=== PATIENT | male | born 1960 | race Caucasian/White ===

== ENCOUNTER → 2016-10-28 | Outpatient (CLI) | payer OTHER ==
--- NOTE | 2016-10-28 09:51 | RAD ---
APPROVED REPORT Patient Location : OUT-PATIENT Indications Lower Extremity Edema : Bilateral Deep System Deep Venous Reflux present : No Findings On grayscale images of the right great saphenous vein and saphenofemoral junction there is no obvious thrombus. There is no reflux noted in the right great saphenous vein. The right lesser saphenous v ein also does not demonstrate any evidence of reflux. The left greater saphenous vein has a reflux time of 2 seconds. No obvious thrombus burden is noted. The left lesser saphenous vein does not demonstrate any evidence of reflux. Critical Notification Critical Value: No <Conclusion> 1. Positive for reflux in the left greater saphenous vein. Otherwise no evidence of reflux in the r ight greater and the bilateral lesser saphenous veins.
--- NOTE | 2016-10-28 14:16 | CARD ---
APPROVED REPORT INDICATION Dyspnea PROCEDURE The patient underwent an Exercise Stress Test using the Daniel Protocol. Blood pressure, heart rate, a nd EKG were monitored. An Echocardiogram was performed by laser/electro optics technician in four stages in quad fashion. At peak stress four se lected images were obtained and placed side by side with resting images for comparison. STRESS ECHO FINDINGS The resting Echocardiogram showed normal left ventricular contractility with an estimated Ejection Fr action of about 60 %. Normal augmentation of myocardial wall segments using a 16 segment model. Test Type: Exercise Stress Nurse/Tech: ángela whitlock Test Indications: dyspnea Cardiac History and Allergies: none stated Medications: see EHR Medical History: none stated Resting ECG: SR Resting Heart Rate: 75 bpm Resting Blood Pressure: 141/82mmHg Pretest Chest Pain: No chest pain Nurse/Tech Notes LUNG SOUNDS CLEAR, S1S2 WNL. Consent: The procedure was explained to the patient in lay terms. Informed consent was witnessed. [place] eout was entered into [employer]. History and Stress Test performed by ÁNGELA WHITLOCK Stress Symptoms NONE STATED POST EXERCISE Reason for Termination: Reached target heart rate Target HR: 139 Max HR: 161 bpm 98% of Maximum Predicted HR: 164 bpm Exercise duration: 7:00 min:sec, 3 Stage Exercise capacity: 10.0METs Max Blood Pressure: 165/87mmHg Blood Pressure response to exercise: Normal blood pressure response during stress. Heart Rate response to exercise: WNL Chest Pain: No. Arrhythmia: No. ST Change: No. INTERPRETATION Stress EKG Conclusion: Baseline EKG showed sinus rhythm. No ischemic changes at peak stress. No arr hythmias. Preliminary Notification Critical Value: No <Conclusion> Treadmill exercise stress echocardiogram did not show any evidence of ischemia or infarct. Normal left ventricle systolic function with ejection fraction estimated at 60%. Patient had good activity tolerance. Low risk for cardiac events.
== END | disposition home or self-care (01) ==
LOC: US 08:52
PROVIDERS: ATTEND Internal Medicine Cardiovascular Disease
DX: R60.0 Localized edema (principal); R06.09 Other forms of dyspnea; K21.9 Gastro-esophageal reflux disease without esophagitis
CPT/HCPCS: 93017; 93350; 93970